=== PATIENT | male | born 1990 | race Caucasian/White ===

== ENCOUNTER 2022-08-29 22:25 | Emergency (ER) | payer OTHER, MEDICAID, SELFPAY ==
[2022-08-29 22:44] VITALS: BP 175/78; PULSE 96; RESP 16; TEMP 37; O2SAT 95; BMI 44.6
--- NOTE | 2022-08-30 00:39 | ED.EXTPRO ---
HPI - Extremity Problem General Chief complaint: Extremity Problem,Nontraumatic Stated complaint: Pain in rt leg Time Seen by Provider: 08/30/22 00:13 Mode of arrival: Ambulatory History of Present Illness HPI Narrative: Patient is a 32-year-old male with history of recurrent cellulitis presenting today with right leg pain redness and swelling. He has had some obvious try skin posterior knee however that area has gotten hard but no significant swelling. He now having more pain into his calf. He knows of a superficial lump there as well. No fevers or chills. This happened to him regularly. He has multiple lotions to help keep the skin moisturized however he says none of them work was previously on amoxicillin and doxycycline he was seen at [facility] for this last month. He does not have a primary care provider Related Data Previous Rx's Medication Instructions Recorded doxycycline hyclate 100 mg capsule 100 mg PO BID #14 caps 08/30/22 Allergies Allergy/AdvReac Type Severity Reaction Status Date / Time cephalexin [From Keflex] AdvReac Intermediate Verified 08/29/22 22:44 codeine AdvReac Mild Nausea Verified 08/29/22 22:44 vancomycin [VANCOMYCIN] AdvReac Mild PT STATES Unverified 01/18/18 12:13 VANCO TO RUN < 200ML/H OR DUE TO HEAT FLASH/ITCH Review of Systems Review of Systems Narrative: GENERAL: Denies chills,fever HEENT: Denies throat pain RESPIRATORY: Denies dyspnea, cough, wheezing CARDIOVASCULAR: Denies chest pain, palpitations GASTROINTESTINAL: Denies nausea, vomiting MUSCULOSKELETAL: Denies extremity pain, injury SKIN: See HPI NEUROLOGIC: Denies weakness, dizziness, headache, numbness 8 point review of systems is negative except for those stated above and HPI Patient History Social History Smoking Status: Current every day smoker Smoking Status: Current every day smoker alcohol intake frequency: a few times a week Substance Use Type: marijuana Exam Initial Vital Signs Initial Vital Signs: Vital Signs Temperature 98.6 F 08/29/22 22:44 Pulse Rate 96 H 08/29/22 22:44 Respiratory Rate 16 08/29/22 22:44 Blood Pressure 175/78 H 08/29/22 22:44 Pulse Oximetry 95 08/29/22 22:44 Oxygen Delivery Method 08/29/22 22:44 GENERAL: Well-appearing, well-nourished and in no acute distress. CARDIOVASCULAR: peripheral pulses in tact, cap refill <2 sec RESPIRATORY: No respiratory distress, speaks in full sentences without difficulty [ABDOMEN: Soft, nontender, no guarding or rebound EXTREMITIES: Normal range of motion, no clubbing or edema. Neurovascularly intact NEUROLOGICAL: Cranial nerves II through XII grossly intact. Normal gait and speech. SKIN: Right leg posterior any dry scaly erythematous some areas are hard the largest area is 1 cm x 2 cm but no fluctuation. Superficial vein is palpated minimally tender calf is soft Course Orders Ordered: Discontinued Medications Doxycycline Hyclate (Doxycycline Hyclate 100 Mg Tablet) 100 mg PO NOW ONE Stop: 08/30/22 00:43 Last Admin: 08/30/22 00:54 Dose: 100 mg Documented By: ROBERT Vital Signs Vital signs: Vital Signs - 8 hr 08/29/22 22:44 08/30/22 00:57 Temperature 98.6 F Pulse Rate 96 H 74 Respiratory Rate 16 16 Blood Pressure 175/78 H 132/65 Pulse Oximetry 95 98 Oxygen Delivery Method Room Air Room Air MDM - Extremity (Nontraumatic) MDM Narrative Medical decision making narrative: Consider DVT sepsis however I feel like this is likely. He does significant calf pain or swelling. His erythema is obvious with dry scaly skin probable cellulitis probably has eczema as well. He does have a palpable and flames superficial vein probably of thrombophlebitis. He has no calf pain swelling or erythema. I considered but do not suspect sepsis, septic arthritis, DVT is, necrotizing soft tissue infection or other emergent process. He is given prescription for doxycycline for mild cellulitis. And instructed to keep the skin moisturized. Discharge Plan Departure Patient Disposition: Home Clinical Impression: Cellulitis of leg Instructions: DI for Cellulitis -- Adult, DI for Atopic Dermatitis-Adult Activity Restrictions/Additional Instructions: *You have been diagnosed with a right leg cellulitis *What to do: At this time keep skin moisturized. I do recommend Aquaphor is 1-2 times daily. Be sure to cover it will come off on her clothing recommend warm compresses there is nothing to be drained at this time please take antibiotics he may need Dermatology referral. Please call schedule for a PCP *Continue to take medications as directed Doxycycline 100 mg twice a day for 7 days *Follow up with your primary care provider in 2-3 days or call [phone] *Return to ER if you should have the redness pain swelling or any new, worsening or concerning symptoms Prescriptions: New doxycycline hyclate 100 mg capsule 100 mg PO BID Qty: 14 0RF Visit Report Forms: Patient Portal/API
[2022-08-30] MEDS: DOXYCYCLINE HYCLATE 100 MG TABLET PO (00:54)
[2022-08-30 00:57] VITALS: BP 132/65; PULSE 74; RESP 16; O2SAT 98
== END 2022-08-30 00:57 | disposition home or self-care (01) ==
PROVIDERS: Emergency Provider Emergency Medicine
DX: L03.115 Cellulitis of right lower limb (principal)
CPT/HCPCS: 99283

== ENCOUNTER → 2024-04-27 10:37 | Outpatient (CLI) | payer OTHER, MEDICAID, SELFPAY | PROVIDERS: Visit Provider Physician Assistant | DX: T81.89XA Other complications of procedures, not elsewhere classified, initial encounter (principal); S81.802A Unspecified open wound, left lower leg, initial encounter; L98.8 Other specified disorders of the skin and subcutaneous tissue; R60.0 Localized edema; L53.9 Erythematous condition, unspecified; I10 Essential (primary) hypertension; E66.01 Morbid (severe) obesity due to excess calories; Z68.42 Body mass index [BMI] 45.0-49.9, adult | CPT/HCPCS: 11043; 11046; 87070; 87075; 87077; 87205; 99203; 99213 ==

== ENCOUNTER → 2024-05-02 14:13 | Outpatient (CLI) | payer OTHER, MEDICAID, SELFPAY | LOC: WC 14:14 | PROVIDERS: Visit Provider Surgery | DX: T81.89XA Other complications of procedures, not elsewhere classified, initial encounter (principal); S81.802A Unspecified open wound, left lower leg, initial encounter; L98.8 Other specified disorders of the skin and subcutaneous tissue; L08.89 Other specified local infections of the skin and subcutaneous tissue; R60.0 Localized edema; L53.9 Erythematous condition, unspecified; E66.3 Overweight | CPT/HCPCS: 11042; 11045; 97605; 99213 ==

== ENCOUNTER → 2024-05-08 12:44 | Outpatient (CLI) | payer OTHER, MEDICAID, SELFPAY | PROVIDERS: Visit Provider Physician Assistant | DX: T81.89XA Other complications of procedures, not elsewhere classified, initial encounter (principal); S81.802A Unspecified open wound, left lower leg, initial encounter; L98.8 Other specified disorders of the skin and subcutaneous tissue; R60.0 Localized edema; L53.9 Erythematous condition, unspecified; L08.89 Other specified local infections of the skin and subcutaneous tissue; M79.662 Pain in left lower leg | CPT/HCPCS: 97605 ==

== ENCOUNTER → 2024-05-14 14:38 | Outpatient (CLI) | payer OTHER, MEDICAID, SELFPAY | LOC: WC 14:39 | PROVIDERS: Visit Provider Surgery | DX: S81.802A Unspecified open wound, left lower leg, initial encounter (principal); L98.8 Other specified disorders of the skin and subcutaneous tissue; R60.0 Localized edema; L53.9 Erythematous condition, unspecified; M79.662 Pain in left lower leg | CPT/HCPCS: 11042; 11045; 97606 ==

== ENCOUNTER → 2024-05-17 11:21 | Outpatient (CLI) | payer OTHER, MEDICAID, SELFPAY | LOC: WC 11:30 | PROVIDERS: Visit Provider Surgery | DX: T81.89XA Other complications of procedures, not elsewhere classified, initial encounter (principal); S81.802A Unspecified open wound, left lower leg, initial encounter; L98.8 Other specified disorders of the skin and subcutaneous tissue; R60.0 Localized edema; L53.9 Erythematous condition, unspecified | CPT/HCPCS: 97605 ==

== ENCOUNTER → 2024-05-21 15:13 | Outpatient (CLI) | payer OTHER, MEDICAID, SELFPAY | PROVIDERS: Visit Provider Surgery | DX: T81.89XA Other complications of procedures, not elsewhere classified, initial encounter (principal); S81.802A Unspecified open wound, left lower leg, initial encounter; L98.8 Other specified disorders of the skin and subcutaneous tissue | CPT/HCPCS: 97605 ==

== ENCOUNTER → 2024-05-24 14:08 | Outpatient (CLI) | payer OTHER, MEDICAID, SELFPAY | LOC: WC 14:09 | PROVIDERS: Visit Provider Surgery | DX: L03.116 Cellulitis of left lower limb (principal); S81.802A Unspecified open wound, left lower leg, initial encounter; R60.0 Localized edema; L53.8 Other specified erythematous conditions; E66.01 Morbid (severe) obesity due to excess calories; Z68.42 Body mass index [BMI] 45.0-49.9, adult | CPT/HCPCS: 11042; 11045; 97605 ==

== ENCOUNTER → 2024-05-29 09:59 | Outpatient (CLI) | payer OTHER, MEDICAID, SELFPAY | LOC: WC 10:00 | PROVIDERS: Visit Provider Surgery | DX: T81.89XA Other complications of procedures, not elsewhere classified, initial encounter (principal); S81.802A Unspecified open wound, left lower leg, initial encounter; L53.8 Other specified erythematous conditions; R60.0 Localized edema; M79.605 Pain in left leg | CPT/HCPCS: 97605 ==

== ENCOUNTER → 2024-05-31 15:00 | Outpatient (CLI) | payer OTHER, MEDICAID, SELFPAY | LOC: WC 15:01 | PROVIDERS: Visit Provider Surgery | DX: T81.89XA Other complications of procedures, not elsewhere classified, initial encounter (principal); S81.802A Unspecified open wound, left lower leg, initial encounter; L98.8 Other specified disorders of the skin and subcutaneous tissue; R60.0 Localized edema; L53.9 Erythematous condition, unspecified; E66.3 Overweight | CPT/HCPCS: 11042; 97605; 99213 ==

== ENCOUNTER → 2024-06-04 12:51 | Outpatient (CLI) | payer OTHER, MEDICAID, SELFPAY | PROVIDERS: Visit Provider Surgery | DX: T81.89XA Other complications of procedures, not elsewhere classified, initial encounter (principal); S81.802A Unspecified open wound, left lower leg, initial encounter; L98.8 Other specified disorders of the skin and subcutaneous tissue; L53.9 Erythematous condition, unspecified; R60.0 Localized edema | CPT/HCPCS: 97605 ==

== ENCOUNTER → 2024-06-07 14:58 | Outpatient (CLI) | payer OTHER, MEDICAID, SELFPAY | PROVIDERS: Visit Provider Surgery | DX: T81.89XA Other complications of procedures, not elsewhere classified, initial encounter (principal); S81.802A Unspecified open wound, left lower leg, initial encounter; L98.8 Other specified disorders of the skin and subcutaneous tissue; R60.0 Localized edema; L53.9 Erythematous condition, unspecified | CPT/HCPCS: 11042 ==

== ENCOUNTER → 2024-06-14 14:20 | Outpatient (CLI) | payer OTHER, MEDICAID, SELFPAY | PROVIDERS: Visit Provider Surgery | DX: T81.89XA Other complications of procedures, not elsewhere classified, initial encounter (principal); S81.802A Unspecified open wound, left lower leg, initial encounter; L98.8 Other specified disorders of the skin and subcutaneous tissue; R60.0 Localized edema; L53.9 Erythematous condition, unspecified | CPT/HCPCS: 11042 ==

== ENCOUNTER → 2024-06-21 13:06 | Outpatient (CLI) | payer OTHER, MEDICAID, SELFPAY | LOC: WC 13:06 | PROVIDERS: Visit Provider Surgery | DX: T81.89XA Other complications of procedures, not elsewhere classified, initial encounter (principal); S81.802A Unspecified open wound, left lower leg, initial encounter; L98.8 Other specified disorders of the skin and subcutaneous tissue; R60.0 Localized edema; L53.9 Erythematous condition, unspecified | CPT/HCPCS: 11042 ==

== ENCOUNTER → 2024-06-28 10:01 | Outpatient (CLI) | payer OTHER, MEDICAID, SELFPAY | LOC: WC 10:01 | PROVIDERS: Visit Provider Surgery | DX: T81.89XA Other complications of procedures, not elsewhere classified, initial encounter (principal); S81.802A Unspecified open wound, left lower leg, initial encounter; L98.8 Other specified disorders of the skin and subcutaneous tissue; R60.0 Localized edema; L53.9 Erythematous condition, unspecified; I10 Essential (primary) hypertension | CPT/HCPCS: 11042; 87070; 87075; 87205; 99213 ==

== ENCOUNTER → 2024-07-05 13:35 | Outpatient (CLI) | payer OTHER, MEDICAID, SELFPAY | PROVIDERS: Visit Provider Surgery | DX: T81.89XA Other complications of procedures, not elsewhere classified, initial encounter (principal); S81.802A Unspecified open wound, left lower leg, initial encounter; L98.8 Other specified disorders of the skin and subcutaneous tissue; R60.0 Localized edema; L53.9 Erythematous condition, unspecified | CPT/HCPCS: 11042 ==

== ENCOUNTER → 2024-07-12 10:13 | Outpatient (CLI) | payer OTHER, MEDICAID, SELFPAY | PROVIDERS: Referring Provider Internal Medicine; Visit Provider Surgery | DX: T81.89XA Other complications of procedures, not elsewhere classified, initial encounter (principal); S81.802A Unspecified open wound, left lower leg, initial encounter; L98.8 Other specified disorders of the skin and subcutaneous tissue; R60.0 Localized edema; L53.9 Erythematous condition, unspecified | CPT/HCPCS: 11042 ==

== ENCOUNTER → 2024-07-19 11:23 | Outpatient (CLI) | payer OTHER, MEDICAID, SELFPAY | LOC: WC 11:35 | PROVIDERS: Visit Provider Surgery | DX: T81.89XA Other complications of procedures, not elsewhere classified, initial encounter (principal); S81.802A Unspecified open wound, left lower leg, initial encounter; L98.8 Other specified disorders of the skin and subcutaneous tissue; L53.9 Erythematous condition, unspecified; R60.0 Localized edema; E66.3 Overweight | CPT/HCPCS: 11042 ==

== ENCOUNTER → 2024-07-26 10:07 | Outpatient (CLI) | payer OTHER, MEDICAID, SELFPAY | LOC: WC 10:07 | PROVIDERS: Visit Provider Surgery | DX: T81.89XA Other complications of procedures, not elsewhere classified, initial encounter (principal); S81.802A Unspecified open wound, left lower leg, initial encounter; L98.8 Other specified disorders of the skin and subcutaneous tissue; R60.0 Localized edema; I10 Essential (primary) hypertension | CPT/HCPCS: 11042; 99213 ==

== ENCOUNTER → 2024-08-02 09:32 | Outpatient (CLI) | payer OTHER, MEDICAID, SELFPAY | LOC: WC 09:33 | PROVIDERS: Visit Provider Surgery | DX: T81.89XA Other complications of procedures, not elsewhere classified, initial encounter (principal); S81.802A Unspecified open wound, left lower leg, initial encounter; L98.8 Other specified disorders of the skin and subcutaneous tissue; R60.0 Localized edema | CPT/HCPCS: 99213 ==

== ENCOUNTER → 2024-08-09 14:07 | Outpatient (CLI) | payer OTHER, MEDICAID, SELFPAY | LOC: WC 14:07 | PROVIDERS: Referring Provider Internal Medicine; Visit Provider Surgery | DX: T81.89XA Other complications of procedures, not elsewhere classified, initial encounter (principal); L98.8 Other specified disorders of the skin and subcutaneous tissue; S81.801A Unspecified open wound, right lower leg, initial encounter; R60.0 Localized edema; R21 Rash and other nonspecific skin eruption; L03.115 Cellulitis of right lower limb; Z79.2 Long term (current) use of antibiotics | CPT/HCPCS: 11042; 99214 ==

== ENCOUNTER → 2024-08-16 10:42 | Outpatient (CLI) | payer OTHER, MEDICAID, SELFPAY | PROVIDERS: Referring Provider Internal Medicine; Visit Provider Surgery | DX: T81.89XA Other complications of procedures, not elsewhere classified, initial encounter (principal); S81.802A Unspecified open wound, left lower leg, initial encounter; L03.116 Cellulitis of left lower limb; R60.0 Localized edema; R21 Rash and other nonspecific skin eruption | CPT/HCPCS: 11042; 87070; 87075; 87205; 99213 ==

== ENCOUNTER → 2024-08-23 11:05 | Outpatient (CLI) | payer OTHER, MEDICAID, SELFPAY | PROVIDERS: Visit Provider Surgery | DX: T81.89XA Other complications of procedures, not elsewhere classified, initial encounter (principal); L98.8 Other specified disorders of the skin and subcutaneous tissue; S81.802A Unspecified open wound, left lower leg, initial encounter; L53.9 Erythematous condition, unspecified; I10 Essential (primary) hypertension | CPT/HCPCS: 11042; 99213 ==

== ENCOUNTER → 2024-08-30 11:49 | Outpatient (CLI) | payer OTHER, MEDICAID, SELFPAY | PROVIDERS: Referring Provider Internal Medicine; Visit Provider Surgery | DX: L97.822 Non-pressure chronic ulcer of other part of left lower leg with fat layer exposed (principal); T81.89XA Other complications of procedures, not elsewhere classified, initial encounter; L53.9 Erythematous condition, unspecified; R60.0 Localized edema | CPT/HCPCS: 11042 ==